=== PATIENT | female | born 1985 | race Caucasian/White ===

== ENCOUNTER → 2018-01-19 | Outpatient (CLI) | payer OTHER ==
--- NOTE | 2018-01-19 19:24 | RAD ---
Pelvic ultrasound dated 01/19/2018. No comparison available. Clinical data indication: Left lower quadrant. IUD placement. FINDINGS: Transabdominal and transvaginal imaging performed. Uterus measures 8.0 x 4.6 x 3.7 cm. No focal uterine mass. Individual complex is normal in thickness for age measuring 4 mm. Intrauterine contraceptive device appears to be adequately positioned within the endometrial canal. Right ovary measures 2.8 x 2.8 x 2.17 m. Left ovary measures 2.9 x 2.4 x 1.8 cm. No adnexal mass or free fluid. IMPRESSION: Negative pelvic ultrasound. Electronically signed by: Jamal Rios MD (01/19/2018 7:20 PM) [facility]
== END | disposition home or self-care (01) ==
LOC: US 17:30
DX: R10.84 Generalized abdominal pain (principal)
CPT/HCPCS: 76830; 76856